=== PATIENT | female | born 1955 | race Two or more races ===

== ENCOUNTER 2020-04-17 12:29 | Emergency (ER) | payer OTHER ==
[~2020-04-17] VITALS: Ht 152.4 cm; Wt 60.3 kg
[2020-04-17 12:48] VITALS: BP 112/81
--- NOTE | 2020-04-17 12:55 | NUR ---
PT SEEN AND EXAMINED BY .
[2020-04-17] MEDS ORDERED: IBUPROFEN 600 MG TABLET PO ONE ×2 (12:57→13:00)
--- NOTE | 2020-04-17 13:27 | NUR ---
TECH AT BEDSIDE FOR US.
--- NOTE | 2020-04-17 14:01 | NUR ---
KNEE IMMOBILIZER APPLIED BY LAWN TECHNICIAN.
--- NOTE | 2020-04-17 14:02 | NUR ---
Patient discharged to home in stable condition. Written and verbal after care instructions given. Patient verbalizes understanding of instruction.
== END 2020-04-17 14:02 | disposition home or self-care (01) ==
LOC: ER 12:32
DX: M25.461 Effusion, right knee (principal); M25.561 Pain in right knee; E78.5 Hyperlipidemia, unspecified; E78.00 Pure hypercholesterolemia, unspecified
CPT/HCPCS: 73564-TC; 93971-TC